=== PATIENT | male | born 1945 | race Two or more races ===

== ENCOUNTER 2017-09-26 18:05 | Emergency (ER) | payer MEDICAID ==
[~2017-09-26] VITALS: Ht 165.1 cm; Wt 102.1 kg
[~2017-09-26 18:05] MED LIST: ASPI-605 PO; ATOR40TA PO; LEVO75TA7 PO; METF850T2 PO; METO25TA6 PO
[2017-09-26] MEDS ORDERED: MORPHINE SULFATE INJ 4 MG/ML DISP.SYRIN ONE (18:40)
[2017-09-26] MEDS ORDERED: ONDANSETRON HCL/PF 4 MG/2 ML VIAL ONE (18:40)
[2017-09-26 18:51] LABS: BASOPHILS # (AUTO) 0.3 /CMM (0.0-0.2); BASOPHILS % (AUTO) 3.2 % (0.0-2.0); EOSINOPHILS # (AUTO) 0.3 /CMM (0.0-0.7); EOSINOPHILS % (AUTO) 4.3 % (0.0-6.0); HEMATOCRIT 39 % (39-51); HEMOGLOBIN 13.6 g/dL (13.5-17.5); LYMPHOCYTES # (AUTO) 2.1 /CMM (0.8-4.8); LYMPHOCYTES % (AUTO) 26.7 % (20.0-44.0); MEAN CORPUSCULAR HEMOGLOBIN 33 PG (26.0-33.0); MEAN CORPUSCULAR HGB CONC 35 g/dl (31.0-36.0); MEAN CORPUSCULAR VOLUME 94 fL (80-96); MONOCYTES # (AUTO) 0.7 /CMM (0.1-1.30); MONOCYTES % (AUTO) 9.5 % (2.0-12.0); NEUTROPHILS # (AUTO) 4.4 /CMM (1.8-8.9); NEUTROPHILS % (AUTO) 56.3 % (43.0-81.0); PLATELET COUNT (AUTO) 282 /CMM (150-450); RDW COEFFICIENT OF VARIATION 12.7 (11.5-15.0); RED BLOOD CELL COUNT(AUTO) 4.18 MIL/uL (4.5-6.0); WHITE BLOOD COUNT (AUTO) 7.8 K/uL (4.3-11.0)
[2017-09-26 18:52] LABS: APPEARANCE,URINE Clear (CLEAR); BILIRUBIN,URINE Negative (NEGATIVE); BLOOD, URINE Negative Ery/uL (NEGATIVE); COLOR,URINE Yellow (YELLOW); KETONES,URINE Negative (NEGATIVE); LEUKOCYTE ESTERASE ,URINE Negative (NEGATIVE); NITRITE, URINE Negative (NEGATIVE); PH,URINE 6.5 (5.0-8.0); PROTEIN,URINE Negative (NEGATIVE); UGLUCOSE Negative (NEGATIVE); UROBILINOGEN,URINE 0.2 EU/dL (0.2)
[2017-09-26] MEDS ORDERED: MORPHINE SULFATE INJ 2 MG/ML DISP.SYRIN IV ONE (19:00)
[2017-09-26] MEDS ORDERED: ONDANSETRON HCL/PF 4 MG/2 ML VIAL IVP ONE (19:00)
[2017-09-26 19:13] LABS: CALCIUM, SERUM 9.1 mg/dL (8.5-10.1); CARBON DIOXIDE 31 mmol/L (21-32); CHLORIDE 102 mmol/L (98-107); CREATININE 1.7 mg/dL (0.6-1.3); GLUCOSE 212 mg/dL (74-106); POTASSIUM 3.9 mmol/L (3.5-5.1); SODIUM SERUM 138 mmol/L (136-145); UREA NITROGEN, BLOOD 16 mg/dL (7-18)
[2017-09-26 19:16] LABS: INR 0.94 (0.87-1.13)
[2017-09-26 19:18] LABS: ALANINE AMINOTRANSFERASE 42 U/L (12-78); ALBUMIN 3.9 g/dL (3.4-5.0); ALKALINE PHOSPHATASE 88 U/L (46-116); ASPARTATE AMINOTRANSFERASE 31 U/L (15-37); BILIRUBIN,TOTAL 0.3 mg/dL (0.2-1.0); TOTAL PROTEIN, SERUM 8.2 g/dL (6.4-8.2)
[2017-09-26 19:21] LABS: TROPONIN I < 0.017 ng/mL (0.00-0.056)
[2017-09-26 20:03] VITALS: BP 141/74
== END 2017-09-26 20:03 | disposition home or self-care (01) ==
LOC: ER 18:09
DX: R07.89 Other chest pain (principal); R10.10 Upper abdominal pain, unspecified; M54.5 Low back pain; I10 Essential (primary) hypertension; E11.9 Type 2 diabetes mellitus without complications; Z79.82 Long term (current) use of aspirin; Z79.84 Long term (current) use of oral hypoglycemic drugs; V43.63XA Car passenger injured in collision with pick-up truck in traffic accident, initial encounter; Y93.89 Activity, other specified; Y92.413 State road as the place of occurrence of the external cause; Y99.8 Other external cause status
CPT/HCPCS: 36415; 71250; 72131; 80048; 80076; 81001; 84484; 85025; 85730; 93005; 96374; 96375; 99285; A4606; J2270; J2405; Z7610; 81000-TC

== ENCOUNTER 2017-10-01 08:10 | Inpatient (IN) | payer MEDICAID ==
[~2017-10-01] VITALS: Ht 167.6 cm; Wt 88.0 kg
[2017-10-01] MEDS ORDERED: NITROGLYCERIN PACKET 1 GM PACKET ONE (08:56)
[2017-10-01] MEDS ORDERED: ASPIRIN 81 MG TAB.CHEW ONE (08:56)
[2017-10-01] MEDS ORDERED: NITROGLYCERIN PACKET 1 GM PACKET TD ONE (09:00)
[2017-10-01] MEDS ORDERED: ASPIRIN 81 MG TAB.CHEW PO ONE (09:00)
[2017-10-01 09:01] LABS: BASOPHILS # (AUTO) 0.1 /CMM (0.0-0.2); BASOPHILS % (AUTO) 0.8 % (0.0-2.0); EOSINOPHILS # (AUTO) 0.3 /CMM (0.0-0.7); EOSINOPHILS % (AUTO) 3.4 % (0.0-6.0); HEMATOCRIT 41 % (39-51); HEMOGLOBIN 13.8 g/dL (13.5-17.5); LYMPHOCYTES # (AUTO) 1.8 /CMM (0.8-4.8); LYMPHOCYTES % (AUTO) 19.8 % (20.0-44.0); MEAN CORPUSCULAR HEMOGLOBIN 33 PG (26.0-33.0); MEAN CORPUSCULAR HGB CONC 34 g/dl (31.0-36.0); MEAN CORPUSCULAR VOLUME 95 fL (80-96); MONOCYTES # (AUTO) 0.7 /CMM (0.1-1.30); NEUTROPHILS # (AUTO) 6.2 /CMM (1.8-8.9); PLATELET COUNT (AUTO) 292 /CMM (150-450); RED BLOOD CELL COUNT(AUTO) 4.24 MIL/uL (4.5-6.0); WHITE BLOOD COUNT (AUTO) 9.2 K/uL (4.3-11.0)
[2017-10-01 09:12] LABS: CARBON DIOXIDE 27 mmol/L (21-32); CHLORIDE 103 mmol/L (98-107); CREATININE 1.5 mg/dL (0.6-1.3); GLUCOSE 271 mg/dL (74-106); POTASSIUM 3.9 mmol/L (3.5-5.1); SODIUM SERUM 139 mmol/L (136-145); UREA NITROGEN, BLOOD 13 mg/dL (7-18)
[2017-10-01 09:21] LABS: TROPONIN I < 0.017 ng/mL (0.00-0.056)
[2017-10-01 09:22] LABS: INR 0.98 (0.87-1.13)
[2017-10-01 09:25] LABS: B-TYPE NATRIURETIC PEPTIDE 71 PG/ML (0-125)
[2017-10-01] MEDS ORDERED: IV NS 0.9% 1,000 ML BAG IV ONE ×2 (09:30→10:00)
[2017-10-01 10:47] LABS: APPEARANCE,URINE Clear (CLEAR); BILIRUBIN,URINE Negative (NEGATIVE); BLOOD, URINE Negative Ery/uL (NEGATIVE); COLOR,URINE Yellow (YELLOW); KETONES,URINE Trace (NEGATIVE); LEUKOCYTE ESTERASE ,URINE Negative (NEGATIVE); NITRITE, URINE Negative (NEGATIVE); PH,URINE 5.5 (5.0-8.0); PROTEIN,URINE Negative (NEGATIVE); UGLUCOSE 100 MG/DL mg/dL (NEGATIVE); UROBILINOGEN,URINE 0.2 EU/dL (0.2)
[2017-10-01 10:53] LABS: BACTERIA,URINE None seen /HPF (None Seen); RBC,URINE 0-3 /HPF (0-2); SQUAMOUS EPITHELIAL CELL,UR Few /HPF (None Seen); WBC,URINE 0-2 /HPF (0-3)
[2017-10-01 11:00] VITALS: BP 136/86
[2017-10-01 11:25] LABS: BILIRUBIN,DIRECT 0.1 mg/dL (0.0-0.2); BILIRUBIN,TOTAL 0.3 mg/dL (0.2-1.0)
[2017-10-01 11:30] VITALS: BP 136/86
[2017-10-01] MEDS ORDERED: IV NS 0.9% 1,000 ML IV ONE ×2 (11:30→14:00)
[2017-10-01] MEDS ORDERED: HYDROCODONE/APAP 10/325MG 1 EA TABLET PO PRN (12:30)
[2017-10-01] MEDS ORDERED: MAG HYDROX/AL HYDROX/SIMETH 30 ML UDC PO PRN (12:30)
[2017-10-01] MEDS ORDERED: ONDANSETRON HCL/PF 4 MG/2 ML VIAL IVP PRN (12:30)
[2017-10-01] MEDS ORDERED: DEXTROSE 50%-WATER 50 ML DISP.SYRIN IV PRN (12:30)
[2017-10-01] MEDS ORDERED: ACETAMINOPHEN 325 MG TABLET PO PRN (12:30)
[2017-10-01] MEDS ORDERED: HYDROCODONE/APAP 5/325MG 1 EACH TABLET PO PRN (12:30)
[2017-10-01] MEDS ORDERED: ZOLPIDEM TARTRATE 5 MG TABLET PO PRN (12:30)
[2017-10-01] MEDS ORDERED: MAGNESIUM HYDROXIDE 30 ML UDC PO PRN (12:30)
[2017-10-01] MEDS ORDERED: Z GUARD REMEDY 2 OZ OINT TP PRN (12:30)
[2017-10-01] MEDS ORDERED: *INSULIN REGULAR(HUMULIN R)HUM 100 UNIT/ML VIAL SQ PRN (12:30)
[2017-10-01] MEDS ORDERED: MORPHINE SULFATE INJ 2 MG/ML DISP.SYRIN IV PRN (12:30)
[2017-10-01] MEDS: IV NS 0.9% 1,000 ML IV SCH (14:50)
[2017-10-01 16:00] VITALS: BP 145/76
[2017-10-01] MEDS: METOPROLOL TARTRATE 25 MG TABLET PO SCH (17:00)
[2017-10-01] MEDS: BLOOD SUGAR DIAGNOSTIC 1 EACH STRIP VI SCH ×2 (17:46→21:19)
[2017-10-01] MEDS: DOCUSATE SODIUM 100 MG CAPSULE PO SCH (17:50)
[2017-10-01] MEDS: INSULIN REGULAR, HUMAN 100 UNIT/ML 3 ML VIAL SQ PRN (17:58)
[2017-10-01 20:00] VITALS: BP 152/85
[2017-10-01] MEDS ORDERED: ENOXAPARIN SODIUM 30 MG/0.3 ML DISP.SYRIN SQ SCH (21:00)
[2017-10-01] MEDS ORDERED: ATORVASTATIN 40 MG TABLET PO SCH (22:00)
[2017-10-02] VITALS: BP 128/62
[2017-10-02] MEDS: IV NS 0.9% 1,000 ML IV SCH ×2 (03:09→11:54)
[2017-10-02 04:00] VITALS: BP 138/78
[2017-10-02 06:35] LABS: BASOPHILS % (AUTO) 0.4 % (0.0-2.0); EOSINOPHILS # (AUTO) 0.4 /CMM (0.0-0.7); EOSINOPHILS % (AUTO) 4.9 % (0.0-6.0); HEMATOCRIT 38 % (39-51); HEMOGLOBIN 13.2 g/dL (13.5-17.5); LYMPHOCYTES # (AUTO) 1.9 /CMM (0.8-4.8); LYMPHOCYTES % (AUTO) 21.3 % (20.0-44.0); MEAN CORPUSCULAR HEMOGLOBIN 33 PG (26.0-33.0); MEAN CORPUSCULAR HGB CONC 34 g/dl (31.0-36.0); MEAN CORPUSCULAR VOLUME 96 fL (80-96); MONOCYTES # (AUTO) 0.7 /CMM (0.1-1.30); MONOCYTES % (AUTO) 7.7 % (2.0-12.0); NEUTROPHILS # (AUTO) 5.7 /CMM (1.8-8.9); NEUTROPHILS % (AUTO) 65.7 % (43.0-81.0); PLATELET COUNT (AUTO) 280 /CMM (150-450); RDW COEFFICIENT OF VARIATION 13.9 (11.5-15.0); WHITE BLOOD COUNT (AUTO) 8.7 K/uL (4.3-11.0)
[2017-10-02] MEDS: BLOOD SUGAR DIAGNOSTIC 1 EACH STRIP VI SCH ×2 (06:48→11:53)
[2017-10-02 07:07] LABS: CHOLESTEROL 182 mg/dL (<200); HDL CHOLESTEROL 40 mg/dL (40-60); LDL 115 mg/dL (0-99); TRIGLYCERIDES 204 mg/dL (30-150)
[2017-10-02 07:23] LABS: CALCIUM, SERUM 8.5 mg/dL (8.5-10.1); CARBON DIOXIDE 23 mmol/L (21-32); CHLORIDE 108 mmol/L (98-107); CREATININE 1.2 mg/dL (0.6-1.3); GLUCOSE 186 mg/dL (74-106); PHOSPHORUS 3.1 mg/dL (2.5-4.9); SODIUM SERUM 141 mmol/L (136-145); UREA NITROGEN, BLOOD 14 mg/dL (7-18)
[2017-10-02] MEDS ORDERED: LEVOTHYROXINE SODIUM 75 MCG TABLET PO SCH (07:30)
[2017-10-02] MEDS ORDERED: PANTOPRAZOLE 40 MG TABLET.DR PO SCH (07:30)
[2017-10-02 08:00] VITALS: BP 145/80
[2017-10-02] MEDS ORDERED: REGADENOSON 0.4 MG/5 ML DISP.SYRIN IVP ONE (08:00)
[2017-10-02] MEDS: DOCUSATE SODIUM 100 MG CAPSULE PO SCH (08:54)
[2017-10-02] MEDS ORDERED: ASPIRIN EC 81 MG TABLET.DR PO SCH (09:00)
[2017-10-02 10:28] VITALS: BP 129/71
[2017-10-02] MEDS: METOPROLOL TARTRATE 25 MG TABLET PO SCH (10:28)
[2017-10-02] MEDS: INSULIN REGULAR, HUMAN 100 UNIT/ML 3 ML VIAL SQ PRN (11:53)
== END 2017-10-02 16:32 | disposition home or self-care (01) | DRG 144 ==
LOC: ER 08:11 → TELE 10:20 → MED 10-02 10:55
PROVIDERS: ADMIT Internal Medicine; ATTEND Internal Medicine
DX: J20.9 Acute bronchitis, unspecified (principal); N17.0 Acute kidney failure with tubular necrosis; E87.2 Acidosis; R07.81 Pleurodynia; E11.65 Type 2 diabetes mellitus with hyperglycemia; R07.9 Chest pain, unspecified; E78.5 Hyperlipidemia, unspecified; I10 Essential (primary) hypertension; Z79.84 Long term (current) use of oral hypoglycemic drugs; I25.10 Atherosclerotic heart disease of native coronary artery without angina pectoris; Z98.61 Coronary angioplasty status
CPT/HCPCS: 36415; 71045-TC; 80048-TC; 80061-TC; 81000-TC; 82247-TC; 82248-TC; 82962-TC; 83605-TC; 83735-TC; 83880; 84100-TC; 84484-TC; 85025-TC; 85730-TC; 87040-TC; 87081-TC; 87086-TC; 87400; 93307-TC; A4606; A9502; J1650; J1815; J2785; J7030; J7040; J7050; Z7610

== ENCOUNTER 2017-10-23 20:53 | Emergency (ER) | payer MEDICAID ==
[~2017-10-23] VITALS: Ht 175.3 cm; Wt 95.3 kg
[2017-10-23 21:09] VITALS: BP 157/84
[2017-10-23] MEDS ORDERED: ACETAMINOPHEN ES 500 MG TABLET ONE (21:50)
[2017-10-23] MEDS ORDERED: ACETAMINOPHEN 325 MG TABLET PO ONE (22:00)
== END 2017-10-23 22:44 | disposition home or self-care (01) ==
LOC: ER 20:56
DX: M79.671 Pain in right foot (principal); I10 Essential (primary) hypertension; E11.9 Type 2 diabetes mellitus without complications; E78.5 Hyperlipidemia, unspecified; Z79.82 Long term (current) use of aspirin; Z98.890 Other specified postprocedural states
CPT/HCPCS: 73630; 99284; A4606; Z7610

== ENCOUNTER 2017-11-25 05:57 | Emergency (ER) | payer MEDICAID ==
[~2017-11-25] VITALS: Ht 162.6 cm; Wt 89.4 kg
--- NOTE | 2017-11-25 06:10 | NUR ---
TO BED 13 YO MALE PATIENT BB SELF C/O RIGHT FOOT PAIN X 3 DAYS. R FOOT NOTED WITH MILD SWELLING WITH DISTAL CMS INTACT. VSS. NAD NOTED. AMBULATORY. COMFORT MEASURES RENDERED.
[2017-11-25] MEDS ORDERED: ACETAMINOPHEN 325 MG TABLET ONE (06:23)
[2017-11-25] MEDS ORDERED: ACETAMINOPHEN 650 MG/20.3 ML UDC PO ONE (06:30)
--- NOTE | 2017-11-25 08:09 | NUR ---
Patient discharged to home in stable condition. Written and verbal after care instructions given, explained in kinyarwanda thru a concrete analyst. Patient verbalizes understanding of instruction. Left in stable condition.
[2017-11-25 08:10] VITALS: BP 122/67
== END 2017-11-25 08:10 | disposition home or self-care (01) ==
LOC: ER 05:59
DX: M79.604 Pain in right leg (principal); E11.9 Type 2 diabetes mellitus without complications; I10 Essential (primary) hypertension; J18.9 Pneumonia, unspecified organism; M77.31 Calcaneal spur, right foot; Y95 Nosocomial condition; Z79.82 Long term (current) use of aspirin
CPT/HCPCS: 73610-TC; 93971-TC; A4606; Z7610

== ENCOUNTER 2018-02-02 10:37 | Emergency (ER) | payer MEDICAID ==
[~2018-02-02] VITALS: Ht 162.6 cm; Wt 77.1 kg
[2018-02-02 10:37] VITALS: BP 113/68
[~2018-02-02 10:37] MED LIST changes: +METF-441 PO; -METF850T2 PO
[2018-02-02] MEDS ORDERED: ONDANSETRON 4 MG TAB.RAPDIS ONE (15:25)
== END 2018-02-02 11:12 | disposition home or self-care (01) ==
LOC: ER 10:38
DX: S83.92XA Sprain of unspecified site of left knee, initial encounter (principal); I10 Essential (primary) hypertension; E11.9 Type 2 diabetes mellitus without complications; Z79.82 Long term (current) use of aspirin; X58.XXXA Exposure to other specified factors, initial encounter; Y93.01 Activity, walking, marching and hiking; Y92.89 Other specified places as the place of occurrence of the external cause; Y99.8 Other external cause status
CPT/HCPCS: A4606; Q0162; Z7610

== ENCOUNTER 2018-02-23 09:38 | Emergency (ER) | payer MEDICAID ==
[~2018-02-23] VITALS: Ht 162.6 cm; Wt 86.2 kg
[2018-02-23 09:55] VITALS: BP 139/77
[2018-02-23] MEDS ORDERED: TRAMADOL HCL 50 MG TABLET ONE (10:23)
[2018-02-23] MEDS ORDERED: TRAMADOL HCL 50 MG TABLET PO ONE (10:30)
== END 2018-02-23 10:51 | disposition home or self-care (01) ==
LOC: ER 09:40
DX: M17.0 Bilateral primary osteoarthritis of knee (principal); I10 Essential (primary) hypertension; E11.9 Type 2 diabetes mellitus without complications; E78.00 Pure hypercholesterolemia, unspecified; Z60.2 Problems related to living alone; Z79.82 Long term (current) use of aspirin; Z79.84 Long term (current) use of oral hypoglycemic drugs
CPT/HCPCS: 99283; A4606; Z7610

== ENCOUNTER 2022-06-24 06:49 | Emergency (ER) | payer MEDICAID ==
[~2022-06-24] VITALS: Ht 157.5 cm; Wt 81.6 kg
--- NOTE | 2022-06-24 07:00 | NUR ---
BIBSELF C/O TROUBLE URINATING FOR THE PAST FEW WEEKS . PT A/OX4. TOLERATING R/A WELL WITH NO SOB
[2022-06-24] MEDS ORDERED: LIDOCAINE 2% JEL UROJET 10 ML MM ONE (07:03)
--- NOTE | 2022-06-24 07:21 | NUR ---
INITIATED F/C 16FR URINE COLLECTED AND SENT
[2022-06-24] MEDS ORDERED: TAMS-12 PO (07:42)
[2022-06-24 08:09] LABS: BILIRUBIN,URINE NEGATIVE (NEGATIVE); COLOR,URINE YELLOW (YELLOW); LEUKOCYTE ESTERASE ,URINE NEGATIVE (NEGATIVE); NITRITE, URINE NEGATIVE (NEGATIVE); PH,URINE 5.5 (5.0-8.0); PROTEIN,URINE NEGATIVE (NEGATIVE); UGLUCOSE NEGATIVE (NEGATIVE); UROBILINOGEN,URINE 0.2 EU/dL (0.2)
[2022-06-24 08:21] LABS: BACTERIA,URINE Rare /HPF (None Seen); RBC,URINE 0-2 /HPF (0-2); SQUAMOUS EPITHELIAL CELL,UR Few /HPF (None Seen); WBC,URINE 0-2 /HPF (0-3)
--- NOTE | 2022-06-24 09:13 | NUR ---
HERNANDEZ BAG REPLACED WITH LEG BAG.
--- NOTE | 2022-06-24 10:00 | NUR ---
PT COMPLAIN OF PAIN IN MEATUS informed
[2022-06-24] MEDS ORDERED: IBUP-1955 PO (11:41)
[2022-06-24] MEDS ORDERED: KETOROLAC TROMETHAMINE 15 MG/ML VIAL ONE (11:55)
[2022-06-24] MEDS ORDERED: KETOROLAC TROMETHAMINE INJ 30 MG/ML VIAL IM ONE (12:00)
--- NOTE | 2022-06-24 12:00 | NUR ---
medicated as ordered
--- NOTE | 2022-06-24 12:14 | NUR ---
leg bag changed before discharge
[2022-06-24 12:18] VITALS: BP 140/80
== END 2022-06-24 12:19 | disposition home or self-care (01) ==
LOC: ER 06:52
DX: R30.0 Dysuria (principal); R33.9 Retention of urine, unspecified; I10 Essential (primary) hypertension; E78.5 Hyperlipidemia, unspecified; E11.9 Type 2 diabetes mellitus without complications; Z60.2 Problems related to living alone; Z79.899 Other long term (current) drug therapy
CPT/HCPCS: 99284; 51702; 81001; 96372; J3490; J1885

== ENCOUNTER → 2022-06-25 | Emergency (ER) | payer MEDICAID ==
[~2022-06-25] VITALS: Ht 165.1 cm; Wt 79.8 kg
[~2022-06-25] MED LIST changes: +IBUP-1955 PO; +TAMS-12 PO
[2022-06-25 13:26] VITALS: BP 106/60
--- NOTE | 2022-06-25 13:46 | NUR ---
PT HERE FOR F/C REMOVAL
--- NOTE | 2022-06-25 14:10 | NUR ---
MD ORDERED ASSESSMENT OF F/C. RN WILL ASSESS
--- NOTE | 2022-06-25 14:15 | NUR ---
RN PERFORMED ASSESSMENT. APPROX 40 ML URINE FOUND IN RESERVOIR. NO LEAKS FOUND. F/C APPEARS TO BE INTACT.
--- NOTE | 2022-06-25 14:38 | NUR ---
REASSESSMENT PERFORMED. 10ML CLEAR FLUID OBSERVED ASPIRATED FROM F/C BULB.
== END | disposition home or self-care (01) ==
LOC: ER 13:00
DX: Z46.6 Encounter for fitting and adjustment of urinary device (principal); I10 Essential (primary) hypertension; E78.5 Hyperlipidemia, unspecified; E11.9 Type 2 diabetes mellitus without complications; Z60.2 Problems related to living alone; Z79.899 Other long term (current) drug therapy

== ENCOUNTER 2023-02-09 07:11 | Emergency (ER) | payer MEDICAID ==
[~2023-02-09] VITALS: Ht 162.6 cm; Wt 82.6 kg
--- NOTE | 2023-02-09 07:30 | NUR ---
called to triage, no response.
--- NOTE | 2023-02-09 07:48 | NUR ---
C/O PAIN ON URINATION, BLADDER PRESSURE, LOW URINE OUTPUT X 3 WEEKS
--- NOTE | 2023-02-09 08:12 | NUR ---
ho cath placed
--- NOTE | 2023-02-09 08:12 | NUR ---
urine sample collected and sent to lab
[2023-02-09 08:27] LABS: BILIRUBIN,URINE NEGATIVE (NEGATIVE); COLOR,URINE YELLOW (YELLOW); LEUKOCYTE ESTERASE ,URINE NEGATIVE (NEGATIVE); NITRITE, URINE NEGATIVE (NEGATIVE); PROTEIN,URINE NEGATIVE (NEGATIVE); UGLUCOSE NEGATIVE (NEGATIVE); UROBILINOGEN,URINE 0.2 EU/dL (0.2)
--- NOTE | 2023-02-09 09:06 | NUR ---
PATIENT GIVEN A LEG BAG FOR HERNANDEZ
[2023-02-09 09:08] VITALS: BP 121/75
--- NOTE | 2023-02-09 09:20 | NUR ---
Patient discharged to home in stable condition, ambulating. Written and verbal after care instructions given. Patient verbalizes understanding of instruction.
== END 2023-02-09 09:21 | disposition home or self-care (01) ==
LOC: ER 07:21
DX: R33.9 Retention of urine, unspecified (principal); I11.0 Hypertensive heart disease with heart failure; I50.9 Heart failure, unspecified; E78.5 Hyperlipidemia, unspecified; I25.10 Atherosclerotic heart disease of native coronary artery without angina pectoris; E11.9 Type 2 diabetes mellitus without complications; Z60.2 Problems related to living alone; Z79.899 Other long term (current) drug therapy

== ENCOUNTER 2023-02-25 06:42 | Emergency (ER) | payer MEDICAID ==
[~2023-02-25] VITALS: Ht 162.6 cm; Wt 81.6 kg
[2023-02-25] MEDS ORDERED: KETOROLAC TROMETHAMINE INJ 30 MG/ML VIAL ONE (07:25)
[2023-02-25] MEDS ORDERED: KETOROLAC TROMETHAMINE INJ 30 MG/ML VIAL IM ONE (07:30)
[2023-02-25] MEDS ORDERED: KETO10TA2 PO ×2 (07:46→07:54)
[2023-02-25 08:00] VITALS: BP 140/82; TEMP 97.2
== END 2023-02-25 08:01 | disposition home or self-care (01) ==
LOC: ER 06:45
DX: R07.89 Other chest pain (principal); I11.0 Hypertensive heart disease with heart failure; I50.9 Heart failure, unspecified; E78.5 Hyperlipidemia, unspecified; I25.10 Atherosclerotic heart disease of native coronary artery without angina pectoris; E11.9 Type 2 diabetes mellitus without complications; Z60.2 Problems related to living alone; Z79.899 Other long term (current) drug therapy; Z79.82 Long term (current) use of aspirin
CPT/HCPCS: 99283; 96372; 71100; J1885